=== PATIENT | female | born 1950 | race Caucasian/White ===

== ENCOUNTER 2016-07-29 07:46 | Outpatient (CLI) | payer MEDICARE ==
[2016-07-29 09:28] LABS: #Eosinphils 0.1 thou/uL (0.0-0.7); #Lymphocytes 2.3 thou/uL (1.20-3.40); #Monocytes 0.4 thou/uL (0.11-0.59); #Neutrophils 6.6 thou/uL (1.40-6.50); %Basophils 0.3 % (0.0-1.0); %Eosinophils 0.8 % (0.0-10.0); %Lymphocytes 24.9 % (21.0-51.0); %Monocytes 3.9 % (0.0-10.0); Hematocrit 34.3 % (36.0-47.0); Red Blood Cell (RBC) Count 4.09 mill/uL (4.20-5.40); White Blood Cell (WBC) Count 9.4 thou/uL (4.8-10.8)
== END 2016-07-29 07:47 | disposition home or self-care (01) ==
LOC: NAV LAB 07:46
PROVIDERS: ATTEND Family Medicine
DX: D50.0 Iron deficiency anemia secondary to blood loss (chronic) (principal)
CPT/HCPCS: 36415; 85025

== ENCOUNTER 2016-08-04 07:49 | Outpatient (CLI) | payer MEDICARE ==
[2016-08-04 09:21] LABS: ALT (SGPT) 6 U/L (0-55); AST (SGOT) 9 U/L (5-34); Alkaline Phosphatase 120 U/L (40-150); Anion Gap 16 mmol/L (10-20); BUN (Urea Nitrogen) 17 mg/dL (9.8-20.1); Bilirubin, Total 0.3 mg/dL (0.2-1.2); Calc. Creatinine Clearance 0 mL/min (70-130); Calcium 9.7 mg/dL (7.8-10.44); Carbon Dioxide 29 mmol/L (23-31); Chloride 98 mmol/L (98-107); Estimated GFR-MDRD 80; Globulin 3.8 g/dL (2.4-3.5); Iron 28 ug/dL (50-170); Protein, Total 7.3 g/dL (5.8-8.1)
== END 2016-08-04 07:50 | disposition home or self-care (01) ==
LOC: NAV LAB 07:49
PROVIDERS: ATTEND Physician Assistant Medical
DX: D50.9 Iron deficiency anemia, unspecified (principal)
CPT/HCPCS: 36415; 80053; 82728; 83540; 83550

== ENCOUNTER 2016-08-11 07:50 | Outpatient (CLI) | payer MEDICARE ==
[2016-08-11 09:35] LABS: #Basophils 0.1 thou/uL (0.0-0.2); #Eosinphils 0.1 thou/uL (0.0-0.7); #Lymphocytes 2.2 thou/uL (1.20-3.40); #Monocytes 0.7 thou/uL (0.11-0.59); #Neutrophils 6.9 thou/uL (1.40-6.50); %Basophils 0.7 % (0.0-1.0); %Lymphocytes 22.2 % (21.0-51.0); %Monocytes 6.6 % (0.0-10.0); Hematocrit 35.3 % (36.0-47.0); Mean Platelet Volume 4.2 fL (7.4-10.4); Red Blood Cell (RBC) Count 4.17 mill/uL (4.20-5.40); White Blood Cell (WBC) Count 9.9 thou/uL (4.8-10.8)
[2016-08-11 09:50] LABS: Prothrombin Time 13.7 SEC (12.0-14.7)
== END 2016-08-11 07:51 | disposition home or self-care (01) ==
LOC: NAV LAB 07:50
PROVIDERS: ATTEND Internal Medicine Gastroenterology
DX: R79.89 Other specified abnormal findings of blood chemistry (principal)
CPT/HCPCS: 36415; 81256; 85025; 85610; 85652